=== PATIENT | male | born 1970 | race African-American/Black ===

== ENCOUNTER 2018-12-26 22:10 | Emergency (ER) | payer BC ==
[~2018-12-26] VITALS: Ht 180.3 cm; Wt 102.1 kg
--- NOTE | 2018-12-26 22:26 | NUR ---
patient in restroom providing urine sample, with assistance from charge nurse, garrett DAVIES.
--- NOTE | 2018-12-26 22:27 | NUR ---
Pt provided urine sample, sent to lab.
[2018-12-26 22:53] LABS: *AMPHETAMINE, URINE NEGATIVE (NEGATIVE); *BARBITURATE, URINE NEGATIVE (NEGATIVE); *CANNABINOID, URINE NEGATIVE (NEGATIVE); *COCCAINE, URINE NEGATIVE (NEGATIVE); *OPIATE, URINE NEGATIVE (NEGATIVE); *PHENCYCLIDINE SCREEN,URINE NEGATIVE (NEGATIVE)
[2018-12-26 23:17] VITALS: BP 118/88
== END 2018-12-26 22:35 | disposition home or self-care (01) ==
LOC: ER 22:13
DX: Z02.89 Encounter for other administrative examinations (principal)
CPT/HCPCS: 80307; A4663